=== PATIENT | female | born 1985 | race Hispanic/Latino ===

== ENCOUNTER 2017-07-06 05:43 | Day surgery (SDC) | payer OTHER ==
[2017-07-06] MEDS ORDERED: NACL BACTERIOSTATIC INFILTRATI ONE (06:27)
[2017-07-06] MEDS ORDERED: ANCEF/STERILE WATER 2 GM/20 ML IV NR (07:00)
--- NOTE | 2017-07-06 07:17 | Anesthesia Consultation ---
Anesthesia Consult and Med Hx - Airway Anesthetic Teeth Evaluation: Good ROM Head & Neck: Adequate Mental/Hyoid Distance: Adequate Mallampati Class: Class II Intubation Access Assessment: Good - Pulmonary Exam CTA: Yes - Cardiac Exam Cardiac Exam: RRR - Pre-Operative Health Status ASA Pre-Surgery Classification: ASA2 Proposed Anesthetic Plan: MAC - Pulmonary Hx Smoking: Yes (1-2 CIG/DAY OCCAS. FOR 20 YEARS) - Central Nervous System Hx Psychiatric Problems: No - Other Systems Hx Alcohol Use: Yes (OCCA) Hx Substance Use: No Hx Cancer: No
--- NOTE | 2017-07-06 07:18 | Anesthesia Day of Surgery ---
Anesthesia Day of Surgery - Day of Surgery Patient Examined: Yes Patient H&P Reviewed: Yes Patient is NPO: Yes
[2017-07-06] MEDS ORDERED: XYLOCAINE 1% 20 mL ONE (07:37)
[2017-07-06] MEDS ORDERED: MARCAINE 0.25% INFILTRATI ONE ×2 (07:38→08:52)
[2017-07-06] MEDS ORDERED: SUBLIMAZE ONE (07:58)
[2017-07-06] MEDS ORDERED: DIPRIVAN 10 MG/ML IV ONE ×4 (07:58→08:57)
[2017-07-06] MEDS ORDERED: LACTATED RINGERS 1,000 ML IV SCH (08:00)
[2017-07-06] MEDS ORDERED: ZOFRAN IV PRN (08:00)
[2017-07-06] MEDS ORDERED: SUBLIMAZE IV PRN (08:00)
[2017-07-06] MEDS ORDERED: XYLOCAINE CARDIAC IV ONE (08:04)
[2017-07-06] MEDS ORDERED: VERSED ONE (08:04)
[2017-07-06] MEDS ORDERED: XYLOCAINE 1% 20 mL INFILTRATI ONE (08:52)
[2017-07-06] MEDS ORDERED: NACL 0.9% IR ONE (08:53)
--- NOTE | 2017-07-06 09:38 | Short Stay Summary ---
Short Stay Documentation Date of service: 07/06/17 - History H&P: obtained from office - Allergies and Medications Current Medications: Allergies ciprofloxacin [From Cipro] Allergy (Verified 06/28/17 16:10) Vomiting Home Medications Medication Instructions Recorded Confirmed Last Taken Type No Known Home Medications [No 06/28/17 06/28/17 Unknown History Reported Home Medications] Active Medications Cefazolin Sodium (Ancef/Sterile Water 2 Gm/20 Ml) 2 gm IV PREOP NR Stop: 07/06/17 23:45 Fentanyl (Sublimaze) 50 mcg IV Q5MIN PRN PRN Reason: Pain , Severe (7-10) Stop: 07/06/17 15:00 Hydromorphone HCl (Dilaudid) 0.5 mg IV Q10MIN PRN PRN Reason: Pain , Severe (7-10) Stop: 07/06/17 15:00 Lactated Ringer's (Lactated Ringers) 1,000 mls @ 75 mls/hr IV DIRECT RODNEY Ondansetron HCl (Zofran) 4 mg IV ONCE PRN PRN Reason: Nausea And Vomiting - Brief post op/procedure progress note Date of procedure: 07/06/17 Pre-op diagnosis: Right breast sebaceous cyst Post-op diagnosis: same Procedure: Right breast sebaceous cyst excisional biopsy Anesthesia: MAC Findings: Right breast sebaceous cyst excisional biopsy at the 2:00 position 14 cm from the nipple Surgeon: TIARA GOMEZ Senior Compensation Analyst: SANTY GAO Estimated blood loss: minimal Pathology: list (right breast sebaceous cyst) Specimen disposition: to lab Condition: stable - Disposition Condition at discharge: Good Disposition: DC-01 TO HOME OR SELFCARE Short Stay Discharge Plan Activity: other (no heavy lifting) Diet: regular Wound: other (keep incision clean and dry; may shower in 24 hours; no baths, pools or lakes; do not rub or scrub incision) Follow up with: MAY PAN MD [Primary Care Provider] - 7 Days TIARA GOMEZ MD [Staff Physician] - 7 Days
[2017-07-06] MEDS: DILAUDID IV PRN ×2 (09:40→09:50)
--- NOTE | 2017-07-06 09:45 | Operative Report ---
Operative Report Operative Report: Preoperative diagnosis: Right breast sebaceous cyst of the lower inner quadrant Postoperative diagnosis: Same Procedure: Right breast sebaceous cyst excisional biopsy Surgeon: Angie Stringer M.D. Power Transmission Engineer: Kristine Lynch D.O. Findings: Known right breast sebecous cyst of the lower inner quadrant Complications: None Drains: None Estimated blood loss: Minimal Disposition: PACU in good condition Indication for operative procedure: This is a 31-year-old lady with known right breast sebaceous cyst at the 2/3:00 position 14 cm from the nipple. Recommendation was to proceed with an excisional biopsy given history of infection. Patient wished to proceed with the above procedure. The patient was procedure in detail: The patient was taken to the operating room and was laid supine. MAC anesthesia was administered. The righ breast sebaceous cyst was palpable at the 2/3 o'clock position 14 cm from the nipple, ultrasound was used to jose alberto the area of concern. The right breast was prepped and draped in the normal sterile operative fashion. Timeout was performed. The skin was anesthesized with 1% lidocaine with quarter percent marcaine. A breast incision was made with a 15 blade knife at the 2/3:00 position with dissection taken down to the subcutaneous tissues. The sebaceous cyst was removed in its entirety with the aid of the Bovie cautery. The specimen was sent to pathology. Hemostasis was then obtained using the Bovie cautery. The breast cavity was irrigated and suctioned. The deep breast tissues were approximated and closed using interrupted 3-0 Vicryl and skin brought together and closed using a running 4-0 Monocryl followed by skin affix. She tolerated surgery very well and was awakened from anesthesia without any complication and transported to PACU in good condition.
[2017-07-06] MEDS ORDERED: NORCO 5/325 ONE (10:10)
[2017-07-06] MEDS ORDERED: NORCO 5/325 PO PRN (10:30)
[2017-07-06] MEDS ORDERED: TORADOL IV PRN (10:38)
[2017-07-06] MEDS ORDERED: BENADRYL ONE (10:50)
[2017-07-06] MEDS ORDERED: BENADRYL IV PRN (10:50)
[2017-07-06 11:35] VITALS: BP 100/68
--- NOTE | 2017-07-06 11:56 | Post Anesthesia Evaluation ---
- Post Anesthesia Evaluation Patient Participated: Yes Airway Patent: Yes Stable Respiratory Function: Yes Nausea/Vomiting: No Temp > 96.8F: Yes Pain Manageable: Yes Adequeate Hydration: Yes Anesthesia Complications: No
== END 2017-07-06 11:18 | disposition home or self-care (01) ==
LOC: OR 05:43
PROVIDERS: ATTEND Surgery
DX: L72.0 Epidermal cyst (principal); N60.81 Other benign mammary dysplasias of right breast; F17.210 Nicotine dependence, cigarettes, uncomplicated; G43.909 Migraine, unspecified, not intractable, without status migrainosus; Z80.8 Family history of malignant neoplasm of other organs or systems; Z88.1 Allergy status to other antibiotic agents; Z80.41 Family history of malignant neoplasm of ovary; Z80.3 Family history of malignant neoplasm of breast
CPT/HCPCS: 19120; 88304; J0690; J1170; J1200; J1885; J2001; J2250; J2704; J3010; J7120